=== PATIENT | female | born 1940 | race Caucasian/White ===

== ENCOUNTER → 2019-02-16 | Outpatient (CLI) | payer MEDICARE, OTHER | LOC: DL.CLIN 08:00 | CPT/HCPCS: 99214 ==

== ENCOUNTER 2023-04-26 15:36 | Inpatient (IN) | payer MEDICARE, OTHER ==
[2023-04-26] MEDS ORDERED: Sodium Chloride 0.9% 1,000 ML IV ONE (15:48)
[2023-04-26] MEDS ORDERED: Activated Charcoal/Water Susp 50 GM/240 ML Tube PO ONE (15:48)
[2023-04-26] MEDS ORDERED: Naloxone 2 MG/2 ML Syringe IVPUSH ONE (15:49)
[2023-04-26] MEDS: Sodium Chloride 0.9% 10 ML Syringe FLUSH PRN (15:58)
[2023-04-26 16:01] LABS: BASOPHILS PERCENT AUTO 0.4 % (0.0-1.0); EOSINOPHILS PERCENT AUTO 1.6 % (1.0-3.0); HEMATOCRIT 46.4 % (37.0-47.0); HEMOGLOBIN 15.8 g/dL (12.0-16.0); LYMPHOCYTES PERCENT AUTO 28.4 % (20.5-50.1); MEAN CORPUSCULAR HEMOGLOBIN 33.6 pg (27.0-34.0); MEAN CORPUSCULAR HGB CONC 34.1 g/dL (33.0-35.0); MEAN CORPUSCULAR VOLUME 98.7 fL (80-100); MONOCYTES PERCENT AUTO 10.4 % (2-8); NEUTROPHILS PERCENT AUTO 59.2 % (42.2-75.2); PLATELET COUNT,PLT 184 10^3/uL (150-450); WHITE BLOOD CELL COUNT,WBC 5.6 10^3/uL (5.0-10.0)
[2023-04-26 16:20] LABS: INR 0.9 (0.9-1.2); PROTHROMBIN TIME 9.7 SEC (9.0-12.0); PTT,PARTIAL THROMBOPLSTIN TIME 23.9 SEC (22.0-34.0)
[2023-04-26 16:29] LABS: A/G RATIO 1.2; ALBUMIN 3.4 g/dL (3.4-5.0); ANION GAP 13.8 mEq/L (7-13); BILIRUBIN TOTAL 0.3 mg/dL (0.2-1.0); BUN/CREATININE RATIO 14.5 (No establ ref range); CALCIUM 8.3 mg/dL (8.5-10.1); CREATININE 0.69 mg/dL (0.55-1.02); EST CRCL DRUG DOSING (CG) 53.79 mL/min; MAGNESIUM 1.6 mg/dL (1.8-2.4); POTASSIUM,K 3.8 mmol/L (3.5-5.1); PROTEIN TOTAL,TP 6.3 g/dL (6.4-8.2); TSH ULTRASENSITIVE 2.07 uIU/mL (0.36-3.74)
[2023-04-26 17:22] LABS: AMPHETAMINES,URINE NEGATIVE (NEGATIVE); BARBITURATES,URINE NEGATIVE (NEGATIVE); BENZODIAZEPINE,URINE NEGATIVE (NEGATIVE); MDMA (ECSTASY), URINE NEGATIVE (NEGATIVE); METHADONE,URINE NEGATIVE (NEGATIVE); METHAMPHETAMINES,URINE NEGATIVE (NEGATIVE); OPIATES,URINE NEGATIVE (NEGATIVE); OXYCODONE,URINE POSITIVE (NEGATIVE); PHENCYCLIDINE,URINE NEGATIVE (NEGATIVE); TCA,URINE NEGATIVE (NEGATIVE)
[2023-04-26 17:23] LABS: APPEARANCE,URINE CLEAR (CLEAR); BILIRUBIN,URINE NEGATIVE (NEGATIVE); COLOR,URINE YELLOW (YELLOW); GLUCOSE,URINE NEGATIVE (NEGATIVE); KETONES,URINE TRACE (NEGATIVE); LEUKOCYTE ESTERASE,URINE NEGATIVE (NEGATIVE); NITRITE,URINE NEGATIVE (NEGATIVE); OCCULT BLOOD,URINE NEGATIVE (NEGATIVE); PROTEIN,URINE NEGATIVE (NEGATIVE); UROBILINOGEN,URINE 0.2 mg/dL (0.2-1.0)
[2023-04-26] MEDS ORDERED: LORazepam 0.5 MG Tab PO PRN (21:25)
[2023-04-26] MEDS ORDERED: cloNIDine 0.1 MG Tab PO PRN (21:25)
[2023-04-26] MEDS ORDERED: LORazepam 2 MG/ML SDV IV PRN (21:25)
[2023-04-26] MEDS ORDERED: MVI, Adult with Vitamin K 10 ML, Folic Acid 1 MG, Thiamine 100 MG in Lactated Ringers 1... IV ONE ×4 (21:25)
[2023-04-26] MEDS ORDERED: Acetaminophen 325 MG Tab PO PRN (21:25)
[2023-04-26] MEDS ORDERED: Docusate Sodium 100 MG Cap PO PRN (21:25)
[2023-04-26] MEDS ORDERED: Ondansetron 4 MG/2 ML SDV IVPUSH PRN (21:25)
[2023-04-26] MEDS ORDERED: Bisacodyl 5 MG Tab PO PRN (21:25)
[2023-04-26] MEDS ORDERED: Albuterol/Ipratropium 3.0-0.5 MG/3 ML Neb Soln NEB PRN (21:25)
[2023-04-26] MEDS ORDERED: HYDROmorphone 0.5 MG/0.5 ML Syringe IVPUSH PRN (21:25)
[2023-04-26] MEDS ORDERED: Polyethylene Glycol 3350 Powder 17 GM Packet PO PRN (21:25)
[2023-04-26] MEDS ORDERED: Magnesium Hydroxide 400 MG/5 ML Susp 30 ML Cup PO PRN (21:25)
[2023-04-26] MEDS ORDERED: Ziprasidone Mesylate 20 MG Vial IM PRN (21:29)
[2023-04-26] MEDS ORDERED: Nicotine 14 MG/24 Hr Patch TRDERM SCH (21:30)
[2023-04-26] MEDS ORDERED: guaiFENesin/Dextromethorphan 100-10 MG/5 ML Soln 5 ML Cup PO PRN (21:45)
[2023-04-26] MEDS ORDERED: Ziprasidone Mesylate 20 MG Vial IM ONE (22:03)
[2023-04-26] MEDS ORDERED: Pantoprazole 40 MG Vial IVPUSH ONE (22:10)
[2023-04-26] MEDS ORDERED: Benzonatate 100 MG Cap PO PRN (22:18)
[2023-04-26] MEDS: Nicotine 21 MG/24 Hr Patch TRDERM SCH (23:06)
[2023-04-27] MEDS: Acetaminophen/oxyCODONE 325-5 MG Tab PO PRN ×2 (04:27→11:08)
[2023-04-27] MEDS ORDERED: Pantoprazole 40 MG Tab.CR PO SCH (06:00)
[2023-04-27] MEDS ORDERED: Ziprasidone Mesylate 20 MG Vial IM PRN (06:00)
[2023-04-27 06:25] LABS: BASOPHILS PERCENT AUTO 0.3 % (0.0-1.0); EOSINOPHILS PERCENT AUTO 2.1 % (1.0-3.0); HEMATOCRIT 44.2 % (37.0-47.0); HEMOGLOBIN 14.8 g/dL (12.0-16.0); LYMPHOCYTES PERCENT AUTO 23.9 % (20.5-50.1); MEAN CORPUSCULAR HEMOGLOBIN 33.6 pg (27.0-34.0); MEAN CORPUSCULAR HGB CONC 33.5 g/dL (33.0-35.0); MEAN CORPUSCULAR VOLUME 100.5 fL (80-100); MONOCYTES PERCENT AUTO 13.3 % (2-8); NEUTROPHILS PERCENT AUTO 60.4 % (42.2-75.2); PLATELET COUNT,PLT 173 10^3/uL (150-450); WHITE BLOOD CELL COUNT,WBC 6.5 10^3/uL (5.0-10.0)
[2023-04-27 06:47] LABS: ANION GAP 10.4 mEq/L (7-13); BILIRUBIN TOTAL 0.4 mg/dL (0.2-1.0); BUN/CREATININE RATIO 7.8 (No establ ref range); CALCIUM 8.4 mg/dL (8.5-10.1); CREATININE 0.64 mg/dL (0.55-1.02); EST CRCL DRUG DOSING (CG) 59.27 mL/min; MAGNESIUM 1.6 mg/dL (1.8-2.4); POTASSIUM,K 3.4 mmol/L (3.5-5.1); PROTEIN TOTAL,TP 5.6 g/dL (6.4-8.2)
[2023-04-27 06:56] LABS: A/G RATIO 1.15
[2023-04-27] MEDS: Nicotine 21 MG/24 Hr Patch TRDERM SCH (08:09)
[2023-04-27] MEDS: Sodium Chloride 0.9% 10 ML Syringe FLUSH PRN ×2 (08:11→08:53)
[2023-04-27] MEDS ORDERED: guaiFENesin 600 MG Tab.ER PO SCH (09:00)
[2023-04-27] MEDS ORDERED: Thiamine 100 MG Tab PO SCH (09:00)
[2023-04-27] MEDS ORDERED: Folic Acid 1 MG Tab PO SCH (09:00)
[2023-04-27] MEDS ORDERED: Famotidine 20 MG Tab PO SCH (09:00)
[2023-04-27] MEDS ORDERED: Multivitamin Tab PO SCH (09:00)
[2023-04-27] MEDS ORDERED: Magnesium Oxide 400 MG Tab PO ONE (11:00)
[2023-04-27] MEDS ORDERED: Potassium Chloride 10 MEQ Tab.ER PO ONE (12:00)
[2023-04-27 12:51] VITALS: BP 166/43; PULSE 80
== END 2023-04-27 12:21 | DRG 918 ==
LOC: DL.ED 15:36 → DL.MS 20:26 → UNDOADMIN 20:26
PROVIDERS: ADMIT Internal Medicine; ATTEND Internal Medicine
DX: T42.6X2A Poisoning by other antiepileptic and sedative-hypnotic drugs, intentional self-harm, initial encounter (principal); T40.2X2A Poisoning by other opioids, intentional self-harm, initial encounter; F17.210 Nicotine dependence, cigarettes, uncomplicated; M25.552 Pain in left hip; G89.29 Other chronic pain; Z79.899 Other long term (current) drug therapy; J44.9 Chronic obstructive pulmonary disease, unspecified; F41.9 Anxiety disorder, unspecified; M47.819 Spondylosis without myelopathy or radiculopathy, site unspecified; M25.78 Osteophyte, vertebrae; R73.9 Hyperglycemia, unspecified; F32.9 Major depressive disorder, single episode, unspecified; Y90.0 Blood alcohol level of less than 20 mg/100 ml; E87.6 Hypokalemia; E83.42 Hypomagnesemia; F10.90 Alcohol use, unspecified, uncomplicated; I10 Essential (primary) hypertension; K21.9 Gastro-esophageal reflux disease without esophagitis; Z88.1 Allergy status to other antibiotic agents; Z90.710 Acquired absence of both cervix and uterus; Z87.81 Personal history of (healed) traumatic fracture; H54.7 Unspecified visual loss
CPT/HCPCS: 36415; 80053; 80143; 80179; 80305; 80307; 81003; 83735; 84443; 85025; 85610; 85730; 93005; 93010; 96361; 96374; 99285 ×2; A9270; J2310; J7030; C9113; J1170; J3411; J3486; J3490; J7120